=== PATIENT | female | born 1995 | race Caucasian/White ===

== ENCOUNTER 2018-05-20 05:35 | Outpatient (CLI) | payer SELFPAY ==
[~2018-05-20] VITALS: Ht 170.2 cm; Wt 68.0 kg
== END 2018-05-20 15:31 ==
LOC: PREOP 05:35
PROVIDERS: ATTEND Specialist
DX: Z01.818 Encounter for other preprocedural examination (principal)

== ENCOUNTER 2018-05-25 08:33 | Day surgery (SDC) | payer BC ==
[~2018-05-25] VITALS: Ht 170.2 cm; Wt 68.0 kg
[2018-05-25] MEDS ORDERED: ATRACURIUM 50 MG/5 ML (TRACRIUM) IV ONE ×3 (08:34→09:15)
--- OUTSIDE RECORDS SUMMARY | 2018-05-25 08:41 | XMS REPORT ---
Author Author Lalo Ross [facility] Address [address] [place], [place] [id number] Care Team Providers Care Kiln Cleaner Name Role Phone Lalo Ross PCP Unavailable Allergies and Adverse Reactions Name Reaction Notes NO KNOWN DRUG ALLERGIES Plan of Treatment Not available. Medications Active Name Start Date Estimated Completion Date SIG Comments loratadine 10 mg oral tablet take 1 tablet (10 mg) by oral route twice daily Front Window Cashier in [facility] nystatin 100,000 unit/gram topical cream 10/18/2014 apply to the affected area(s) by topical route 2 times per day ibuprofen 800 mg oral tablet 10/18/2014 take 1 tablet (800 mg) by oral route 3 times per day with food [place]-Smoothe/FS Body Oil 0.01 % topical oil 03/20/2016 apply to the affected area(s) by topical route 3 times per day hydroxyzine HCl 25 mg oral tablet 03/20/2016 09/16/2016 take 1 tablet (25 mg ) by oral route in the am, and 2 tablets in the evening Singulair 10 mg oral tablet 03/20/2016 09/16/2016 take 1 tablet (10 mg) by oral route twice daily Name Start Date Expiration Date SIG Comments A/B Otic 5.4-1.4 % otic drops 07/18/2010 07/21/2010 instill into right ear by otic route every 2 hours as needed enough drops to fill ear canal for 3 days prednisone 20 mg oral tablet 07/18/2010 07/21/2010 take 3 tablet (20 mg) by oral route daily for 3 days Tri-Sprintec (28) 0.18/0.215/0.25 mg-35 mcg (28) oral tablet 12/26/20142015 take 1 tablet by oral route once daily for 28 days Discontinued Name Start Date Discontinued Date SIG Comments Singulair 10 mg oral tablet 02/20/2010 07/30/2011 take 1 tablet (10 mg) by oral route once daily for 30 days dose changed prednisone 20 mg oral tablet 07/30/2011 09/20/2011 take 1 tablet (20 mg) by oral route once daily for 4 days then 0.5 tablet daily for 4 days Elidel 1 % topical cream 11/16/2012 02/10/2013 apply a thin layer to the affected area(s) by topical route 2 times per day ; rub in gently and completely Medrol (Tonio) 4 mg oral tablets,dose pack 08/30/2014 10/18/2014 take as directed Problem List Description Status Onset Eczema Active Vital Signs Date Time BP-Sys(mm[Hg] BP-Suad(mm[Hg]) HR(bpm) RR(rpm) Temp WT HT HC BMI BSA BMI Percentile O2 Sat(%) 03/20/2016 8:14:00 AM 120 mmHg 66 mmHg 56 bpm 18 rpm 97 F 140 lbs 65.5 in 22.94 kg/m2 1.71 m2 100 % 10/18/2014 9:30:00 AM 116 mmHg 70 mmHg 54 bpm 16 rpm 98 F 133 lbs 65.5 in 21.7955 kg/m 1.6697 m 51.3 % 100 % 03/31/2014 3:09:00 PM 118 mmHg 62 mmHg 61 bpm 16 rpm 98.1 F 139 lbs 65.5 in 22.78 kg/m2 1.71 m2 63.2 % 100 % 02/08/2013 8:48:00 AM 118 mmHg 60 mmHg 60 bpm 16 rpm 98.3 F 137 lbs 65 in 22.7978 kg/m 1.6882 m 66.6 % 09/20/2011 2:22:00 PM 112 mmHg 62 mmHg 72 bpm 18 rpm 98.2 F 132.5 lbs 65 in 22.05 kg/m2 1.66 m2 64.9 % 07/30/2011 2:26:00 PM 116 mmHg 60 mmHg 60 bpm 18 rpm 99.1 F 132 lbs 07/18/2010 2:16:00 PM 108 mmHg 78 mmHg 72 bpm 20 rpm 97.2 F 129.1 lbs 02/20/2010 10:14:00 AM 110 mmHg 72 mmHg 84 bpm 20 rpm 99.5 F 125 lbs 65 in 20.8009 kg/m 1.6125 m 60.2 % Social History Name Description Comments Student (High school ) Tobacco Never smoker History of Procedures Date Ordered Description Order Status 07/30/2011 12:00 AM MRI LWR EXTREMITY W/O&W/DYE Reviewed 02/23/2016 12:00 AM IMMUNOTHERAPY ONE INJECTION Reviewed 02/29/2016 12:00 AM IMMUNOTHERAPY ONE INJECTION Reviewed 03/07/2016 12:00 AM IMMUNOTHERAPY ONE INJECTION Reviewed 03/15/2016 12:00 AM IMMUNOTHERAPY ONE INJECTION Reviewed 03/20/2016 12:00 AM IMMUNOTHERAPY ONE INJECTION Reviewed 03/27/2016 12:00 AM IMMUNOTHERAPY ONE INJECTION Reviewed 04/11/2016 12:00 AM IMMUNOTHERAPY ONE INJECTION Reviewed 02/08/2013 12:00 AM Decadron 8 mg [facility]# [address]-55 Reviewed 02/08/2013 12:00 AM Depo-Medrol 80 mg [facility]#[id number] Reviewed Results Summary Not available. History Of Immunizations Not available. History of Past Illness Name Date of Onset Comments Eczema Otalgia Mar 06 2010 9:42AM Otitis Media, Nonsuppurative, Serous Mar 06 2010 9:42AM Allergic rhinitis; due to pollen Mar 06 2010 9:42AM Allergic Rhinitis Due To Pollen Jul 18 2010 2:20PM Contusion, left knee Jul 30 2011 2:24PM Sprain: Left knee Sep 20 2011 2:19PM Eczema Feb 08 2013 8:50AM Sports Physical Mar 31 2014 3:11PM Candidiasis Of Skin, Left Axilla Oct 18 2014 9:33AM Knee sprain, left, initial encounter Oct 18 2014 9:33AM Allergic rhinitis; due to pollen Feb 23 2016 7:41AM Allergic rhinitis; due to other allergen Feb 23 2016 7:41AM Allergic rhinitis; due to pollen Feb 29 2016 3:03PM Allergic rhinitis; due to other allergen Feb 29 2016 3:03PM Allergic rhinitis; due to pollen Mar 07 2016 1:59PM Allergic rhinitis; due to other allergen Mar 07 2016 1:59PM Allergic rhinitis; due to pollen Mar 15 2016 11:39AM Allergic rhinitis; due to other allergen Mar 15 2016 11:39AM Allergic rhinitis; due to pollen Mar 20 2016 8:58AM Allergic rhinitis; due to other allergen Mar 20 2016 8:58AM Eczema, unspecified type Mar 20 2016 8:16AM Allergic rhinitis; due to pollen Mar 27 2016 10:39AM Allergic rhinitis; due to other allergen Mar 27 2016 10:39AM Allergic rhinitis; due to pollen Apr 11 2016 12:48PM Allergic rhinitis; due to other allergen Apr 11 2016 12:48PM Payers Insurance Name Company Name Plan Name Plan Number Policy Number Policy Group Number Start Date [facility] [id number] January Queenie Jerome [id number] Saturday, 2011 [id number] N/A History of Encounters Visit Date Visit Type Provider 04/11/2016 Nurse visit Lalo Ross DO 04/05/2016 Nurse visit Lalo Ross DO 03/27/2016 Nurse visit Lalo Ross DO 03/20/2016 Office visit Lalo Ross DO 03/15/2016 Nurse visit Lalo Apontete DO 03/07/2016 Nurse visit Lalo Ross DO 02/29/2016 Nurse visit Lalo Ross DO 02/22/2016 Nurse visit Lalo Ross DO 10/18/2014 Office visit Lalo Ross DO 03/31/2014 Office visit Lalo Ross DO 02/08/2013 Office visit Lalo Ross DO 07/30/2011 Office visit Lalo Ross DO 07/18/2010 Office visit Harini Yeh MD 02/20/2010 Office visit Harini Yeh MD
--- OUTSIDE RECORDS SUMMARY | 2018-05-25 08:41 | XMS REPORT ---
Author Author Ishan Urena [facility] Address [address] [place], [place] [id number] Care Team Providers Care Policy Writer Name Role Phone Ishan Urena PCP Unavailable Allergies and Adverse Reactions Name Reaction Notes NO KNOWN DRUG ALLERGIES Plan of Treatment Not available. Medications Active Name Start Date Estimated Completion Date SIG Comments loratadine 10 mg oral tablet take 1 tablet (10 mg) by oral route twice daily Brooch And Bracelet Maker in [facility] nystatin 100,000 unit/gram topical cream 10/18/2014 apply to the affected area(s) by topical route 2 times per day ibuprofen 800 mg oral tablet 10/18/2014 take 1 tablet (800 mg) by oral route 3 times per day with food [place]-Smoothe/FS Body Oil 0.01 % topical oil 03/20/2016 [...] 04/11/2016 12:00 AM IMMUNOTHERAPY ONE INJECTION Reviewed 05/01/2016 12:00 AM IMMUNOTHERAPY ONE INJECTION Reviewed 02/08/2013 12:00 AM Decadron 8 mg [facility]# [address]-19 Reviewed 02/08/2013 12:00 AM Depo-Medrol 80 mg [facility]#[address]-29 Reviewed Results Summary Not available. History Of [...] to other allergen Apr 11 2016 12:48PM Allergic rhinitis; due to pollen May 01 2016 3:19PM Allergic rhinitis; due to other allergen May 01 2016 3:19PM Payers Insurance Name Company Name Plan Name Plan Number Policy Number Policy Group Number Start Date [facility] [id number] January Queenie Jerome [id number] Saturday, 2011 [facility] [id number] N/A History of Encounters Visit Date Visit Type Provider 04/18/2016 Nurse visit Ishan Urena MD 04/11/2016 Nurse visit Lalo Ross DO 04/05/2016 Nurse visit Lalo Ross DO 03/27/2016 Nurse visit Lalo Ross DO 03/20/2016 Office visit Lalo Ross DO 03/15/2016 Nurse visit Lalo Ross DO 03/07/2016 Nurse visit Lalo Ross DO 02/29/2016 Nurse visit Lalo Ross DO 02/22/2016 Nurse visit Lalo Ross DO 10/18/2014 Office visit Lalo Vandana DO 03/31/2014 Office visit Lalo Ross DO 02/08/2013 Office visit Lalo Ross DO 07/30/2011 Office visit Lalo Ross DO 07/18/2010 Office visit Harini Yeh MD 02/20/2010 Office visit Harini Yeh MD
--- OUTSIDE RECORDS SUMMARY | 2018-05-25 08:41 | XMS REPORT ---
Author Author Lalo Ross [facility] Address [address] [place], [place] [id number] Care Team Providers Care Computer Support Specialist Name Role Phone Lalo Ross PCP Unavailable Allergies and Adverse Reactions Name Reaction Notes NO KNOWN DRUG ALLERGIES Plan of Treatment Not available. Medications Active Name Start Date Estimated Completion Date SIG Comments loratadine 10 mg oral tablet take 1 tablet (10 mg) by oral route twice daily Strap Folding Machine Operator in [facility] [place]-Smoothe/FS Body Oil 0.01 % topical oil 07/12/2014 apply to the affected area(s) by topical route 3 times per day nystatin 100,000 unit/gram topical cream 10/18/2014 apply to the affected area(s) by topical route 2 times per day ibuprofen 800 mg oral tablet 10/18/2014 take 1 tablet (800 mg) by oral route 3 times per day with food Name Start Date Expiration Date SIG Comments A/B Otic 5.4-1.4 % otic drops 07/18/2010 07/21/2010 instill into right ear by otic route every 2 hours as needed enough drops to fill ear canal for 3 days prednisone 20 mg oral tablet 07/18/2010 07/21/2010 take 3 tablet (20 mg) by oral route daily for 3 days Singulair 10 mg oral tablet 12/17/2013 06/15/2014 take 1 tablet (10 mg) by oral route twice daily hydroxyzine HCl 25 mg oral tablet 08/30/2014 02/26/2015 take 1 tablet (25 mg ) by oral route in the am, and 2 tablets in the evening Tri-Sprintec (28) 0.18/0.215/0.25 mg-35 mcg (28) oral [...] HC BMI BSA BMI Percentile O2 Sat(%) 10/18/2014 9:30:00 AM 116 mmHg 70 mmHg 54 bpm 16 rpm 98 F 133 lbs 65.5 in 21.80 kg/m2 1.67 m2 51.3 % 100 % 03/31/2014 3:09:00 PM 118 mmHg 62 mmHg 61 bpm 16 rpm 98.1 F 139 lbs 65.5 in 22.7788 kg/m 1.707 m 63.2 % 100 % 02/08/2013 8:48:00 AM 118 mmHg 60 mmHg 60 bpm 16 rpm 98.3 F 137 lbs 65 in 22.80 kg/m2 1.69 m2 66.6 % 09/20/2011 2:22:00 PM 112 mmHg 62 mmHg 72 bpm 18 rpm 98.2 F 132.5 lbs 65 in 22.0489 kg/m 1.6602 m 64.9 % 07/30/2011 2:26:00 PM 116 mmHg 60 mmHg 60 bpm 18 rpm 99.1 F 132 lbs 07/18/2010 2:16:00 PM 108 mmHg 78 mmHg 72 bpm 20 rpm 97.2 F 129.1 lbs 02/20/2010 10:14:00 AM 110 mmHg 72 mmHg 84 bpm 20 rpm 99.5 F 125 lbs 65 in 20.80 kg/m2 1.61 m2 60.2 % Social History Name Description Comments Student (High school ) Tobacco Never smoker History of Procedures Date Ordered Description Order Status 07/30/2011 12:00 AM MRI LWR EXTREMITY W/O&W/DYE Reviewed 02/23/2016 12:00 AM IMMUNOTHERAPY ONE INJECTION Reviewed 02/29/2016 12:00 AM IMMUNOTHERAPY ONE INJECTION Reviewed 03/07/2016 12:00 AM IMMUNOTHERAPY ONE INJECTION Reviewed 03/15/2016 12:00 AM IMMUNOTHERAPY ONE INJECTION Reviewed 02/08/2013 12:00 AM Decadron 8 mg [facility]# [address]-34 Reviewed 02/08/2013 12:00 AM Depo-Medrol 80 mg [facility]#[address]-93 Reviewed Results Summary Not available. History Of [...] to other allergen Mar 15 2016 11:39AM Payers Insurance Name Company Name Plan Name Plan Number Policy Number Policy Group Number Start Date [facility] [id number] January Gemukesh Jerome [id number] Saturday, 2011 [facility] [id number] N/A History of Encounters Visit Date Visit Type Provider 03/15/2016 Nurse visit Lalo Ross DO 03/07/2016 [...]
--- OUTSIDE RECORDS SUMMARY | 2018-05-25 08:42 | XMS REPORT ---
Author Author Lalo Ross [facility] Address [address] [place], [place] [id number] Care Team Providers Care Operations Representative Name Role Phone Lalo Ross PCP Unavailable Allergies and Adverse Reactions Name Reaction Notes NO KNOWN DRUG ALLERGIES Plan of Treatment Not available. Medications Active Name Start Date Estimated Completion Date SIG Comments loratadine 10 mg oral tablet take 1 tablet (10 mg) by oral route twice daily Greige Goods Marker in [facility] nystatin 100,000 unit/gram topical cream 10/18/2014 apply to the affected area(s) by topical route 2 times per day ibuprofen 800 mg oral tablet 10/18/2014 take 1 tablet (800 mg) by oral route 3 times per day with food [place]-Smoothe/FS Body Oil 0.01 % topical oil 03/20/2016 [...] 03/27/2016 12:00 AM IMMUNOTHERAPY ONE INJECTION Reviewed 02/08/2013 12:00 AM Decadron 8 mg [facility]# [address]-98 Reviewed 02/08/2013 12:00 AM Depo-Medrol 80 mg [facility]#[address]-65 Reviewed Results Summary Not available. History Of [...] to other allergen Mar 27 2016 10:39AM Payers Insurance Name Company Name Plan Name Plan Number Policy Number Policy Group Number Start Date [facility] [id number] January Queenie Jerome [id number] Saturday, 2011 [facility] [id number] N/A History of Encounters Visit Date Visit Type Provider 03/27/2016 Nurse visit Lalo Ross DO 03/20/2016 [...]
--- OUTSIDE RECORDS SUMMARY | 2018-05-25 08:42 | XMS REPORT ---
Author Author Lalo Ross [facility] Address [address] [place], [place] [id number] Care Team Providers Care Lock Stitch Channeler Name Role Phone Lalo Ross PCP Unavailable Allergies and Adverse Reactions Name Reaction Notes NO KNOWN DRUG ALLERGIES Plan of Treatment Not available. Medications Active Name Start Date Estimated Completion Date SIG Comments loratadine 10 mg oral tablet take 1 tablet (10 mg) by oral route twice daily Fuel Cell Builder in [facility] nystatin 100,000 unit/gram topical cream 10/18/2014 apply to the affected area(s) by topical route 2 times per day ibuprofen 800 mg oral tablet 10/18/2014 take 1 tablet (800 mg) by oral route 3 times per day with food [place]-Smoothe/FS Body Oil 0.01 % topical oil 03/20/2016 apply to the affected area(s) by topical route 3 times per day hydroxyzine HCl 25 mg oral tablet 05/09/2016 11/05/2016 take 1 tablet (25 mg) by oral route in the am, and 2 tablets in the evening Singulair 10 mg oral tablet 05/09/2016 11/05/2016 take 1 tablet (10 mg) by oral [...] HC BMI BSA BMI Percentile O2 Sat(%) 05/16/2016 9:14:00 AM 124 mmHg 78 mmHg 93 bpm 18 rpm 98.1 F 152 lbs 65.5 in 24.91 kg/m2 1.79 m2 99 % 03/20/2016 8:14:00 AM 120 mmHg 66 mmHg 56 bpm 18 rpm 97 F 140 lbs 65.5 in 22.9427 kg/m 1.7131 m 100 % 10/18/2014 9:30:00 AM 116 mmHg [...] 05/01/2016 12:00 AM IMMUNOTHERAPY ONE INJECTION Reviewed 05/09/2016 12:00 AM IMMUNOTHERAPY ONE INJECTION Reviewed 05/16/2016 12:00 AM IMMUNOTHERAPY ONE INJECTION Reviewed 02/08/2013 12:00 AM Decadron 8 mg [facility]# [address]-10 Reviewed 02/08/2013 12:00 AM Depo-Medrol 80 mg [facility]#[address]-26 Reviewed Results Summary Not available. History Of [...] to other allergen May 01 2016 3:19PM Allergic rhinitis; due to pollen May 09 2016 10:23AM Allergic rhinitis; due to other allergen May 09 2016 10:23AM Allergic rhinitis; due to pollen May 16 2016 9:32AM Allergic rhinitis; due to other allergen May 16 2016 9:32AM Payers Insurance Name Company Name Plan Name Plan Number Policy Number Policy Group Number Start Date [facility] [id number] January [facility] [id number] Saturday, 2011 [facility] [id number] N/A History of Encounters Visit Date Visit Type Provider 05/16/2016 Nurse visit Lalo Ross DO 05/09/2016 Nurse visit Beronica Mora APRN 04/18/2016 Nurse visit Ishan Urena MD 04/11/2016 Nurse visit Lalo Ross DO 04/05/2016 Nurse visit Lalo Vandana DO 03/27/2016 Nurse visit Lalo Vandana DO 03/20/2016 Office visit Lalo Vandaan DO 03/15/2016 Nurse visit Lalo Vandana DO 03/07/2016 Nurse visit Lalo Vandana DO 02/29/2016 Nurse visit Lalo Vandana DO 02/22/2016 Nurse visit Lalo Vandana DO 10/18/2014 Office visit Lalo Vandana DO 03/31/2014 Office visit Lalo Vandana DO 02/08/2013 Office visit Lalo Vandana DO 07/30/2011 Office visit Lalo Ross DO 07/18/2010 Office visit Harini Yeh MD 02/20/2010 Office visit Harini Yeh MD
--- OUTSIDE RECORDS SUMMARY | 2018-05-25 08:42 | XMS REPORT ---
Author Author Lalo Ross [facility] Address [address] [place], [place] [id number] Care Team Providers Care Policy Intern Name Role Phone Lalo Ross PCP Unavailable Allergies and Adverse Reactions Name Reaction Notes NO KNOWN DRUG ALLERGIES Plan of Treatment Not available. Medications Active Name Start Date Estimated Completion Date SIG Comments loratadine 10 mg oral tablet take 1 tablet (10 mg) by oral route twice daily Regulatory Coordinator in [facility] [place]-Smoothe/FS Body Oil 0.01 % topical oil 07/12/2014 [...] 02/23/2016 12:00 AM IMMUNOTHERAPY ONE INJECTION Reviewed 02/08/2013 12:00 AM Decadron 8 mg [facility]# [address]-67 Reviewed 02/08/2013 12:00 AM Depo-Medrol 80 mg [facility]#[address]-62 Reviewed Results Summary Not available. History Of [...] to other allergen Feb 23 2016 7:41AM Payers Insurance Name Company Name Plan Name Plan Number Policy Number Policy Group Number Start Date [facility] [id number] January [facility] [id number] Saturday, 2011 [facility] [id number] N/A History of Encounters Visit Date Visit Type Provider 02/22/2016 Nurse visit Lalo Ross DO 10/18/2014 Office visit Lalo Ross DO 03/31/2014 Office visit Lalo Ross DO 02/08/2013 Office visit Lalo Ross DO 07/30/2011 Office visit Lalo Ross DO 07/18/2010 Office visit Harini Yeh MD 02/20/2010 Office visit Harini Yeh MD
--- OUTSIDE RECORDS SUMMARY | 2018-05-25 08:42 | XMS REPORT ---
Author Author Lalo Ross [facility] Address [address] [place], [place] [address] Care Team Providers Care Parking Enforcement Manager Name Role Phone Lalo Ross PCP Unavailable Allergies and Adverse Reactions Name Reaction Notes NO KNOWN DRUG ALLERGIES Plan of Treatment Not available. Medications Active Name Start Date Estimated Completion Date SIG Comments loratadine 10 mg oral tablet take 1 tablet (10 mg) by oral route twice daily Rail Filler in [facility] [place]-Smoothe/FS Body Oil 0.01 % topical oil 07/12/2014 [...] 03/07/2016 12:00 AM IMMUNOTHERAPY ONE INJECTION Reviewed 02/08/2013 12:00 AM Decadron 8 mg [facility]# [address]-76 Reviewed 02/08/2013 12:00 AM Depo-Medrol 80 mg [facility]#[address]-10 Reviewed Results Summary Not available. History Of [...] to other allergen Mar 07 2016 1:59PM Payers Insurance Name Company Name Plan Name Plan Number Policy Number Policy Group Number Start Date [facility] [id number] January Queenie Jerome [id number] Saturday, 2011 [facility] [id number] N/A History of Encounters Visit Date Visit Type Provider 03/07/2016 Nurse visit Lalo Ross DO 02/29/2016 Nurse visit Lalo Ross DO 02/22/2016 Nurse visit Lalo Ross DO 10/18/2014 Office visit Lalo Ross DO 03/31/2014 Office visit Lalo Ross DO 02/08/2013 Office visit Lalo Ross DO 07/30/2011 Office visit Lalo Ross DO 07/18/2010 Office visit Harini Yeh MD 02/20/2010 Office visit Harini Yeh MD
--- OUTSIDE RECORDS SUMMARY | 2018-05-25 08:43 | XMS REPORT ---
Author Author Lalo Ross [facility] Address [address] [place], [place] [id number] Care Team Providers Care Heating Worker Name Role Phone Lalo Ross PCP Unavailable Allergies and Adverse Reactions Name Reaction Notes NO KNOWN DRUG ALLERGIES Plan of Treatment Not available. Medications Active Name Start Date Estimated Completion Date SIG Comments loratadine 10 mg oral tablet take 1 tablet (10 mg) by oral route twice daily Family Services Assistant in [facility] [place]-Smoothe/FS Body Oil 0.01 % topical oil 07/12/2014 [...] 02/29/2016 12:00 AM IMMUNOTHERAPY ONE INJECTION Reviewed 02/08/2013 12:00 AM Decadron 8 mg [facility]# [address]-10 Reviewed 02/08/2013 12:00 AM Depo-Medrol 80 mg [facility]#[address]-57 Reviewed Results Summary Not available. History Of [...] to other allergen Feb 29 2016 3:03PM Payers Insurance Name Company Name Plan Name Plan Number Policy Number Policy Group Number Start Date [facility] [id number] January [facility] [id number] Saturday, 2011 [facility] [id number] N/A History of Encounters Visit Date Visit Type Provider 02/29/2016 Nurse visit Lalo Ross DO 02/22/2016 Nurse visit Lalo Ross DO 10/18/2014 Office visit Lalo Ross DO 03/31/2014 Office visit Lalo Ross DO 02/08/2013 Office visit Lalo Ross DO 07/30/2011 Office visit Laol Ross DO 07/18/2010 Office visit Harini Yeh MD 02/20/2010 Office visit Harini Yeh MD
--- OUTSIDE RECORDS SUMMARY | 2018-05-25 08:43 | XMS REPORT ---
Author Author Lalo Ross [facility] Address [address] [place], [place] [address] Care Team Providers Care Superintendent Communications Name Role Phone Lalo Ross PCP Unavailable Allergies and Adverse Reactions Name Reaction Notes NO KNOWN DRUG ALLERGIES Plan of Treatment Not available. Medications Active Name Start Date Estimated Completion Date SIG Comments loratadine 10 mg oral tablet take 1 tablet (10 mg) by oral route twice daily Prism Inspector in [facility] nystatin 100,000 unit/gram topical cream 10/18/2014 apply to the affected area(s) by topical route 2 times per day ibuprofen 800 mg oral tablet 10/18/2014 take 1 tablet (800 mg) by oral route 3 times per day with food [place]-Smoothe/FS Body Oil 0.01 % topical oil 03/20/2016 [...] 03/20/2016 12:00 AM IMMUNOTHERAPY ONE INJECTION Reviewed 02/08/2013 12:00 AM Decadron 8 mg [facility]# [address]-48 Reviewed 02/08/2013 12:00 AM Depo-Medrol 80 mg [facility]#[address]-31 Reviewed Results Summary Not available. History Of [...] Eczema, unspecified type Mar 20 2016 8:16AM Payers Insurance Name Company Name Plan Name Plan Number Policy Number Policy Group Number Start Date [facility] [id number] January Queenie Jerome [id number] Saturday, 2011 [facility] [id number] N/A History of Encounters Visit Date Visit Type Provider 03/20/2016 Office visit Lalo Ross DO 03/15/2016 Nurse visit Lalo Ross DO 03/07/2016 Nurse visit Lalo Ross DO 02/29/2016 Nurse visit Lalo Ross DO 02/22/2016 Nurse visit Lalo Ross DO 10/18/2014 Office visit Lalo Ross DO 03/31/2014 Office visit Lalo Ross DO 02/08/2013 Office visit Laol Ross DO 07/30/2011 Office visit Lalo Ross DO 07/18/2010 Office visit Harini Yeh MD 02/20/2010 Office visit Harini Yeh MD
--- OUTSIDE RECORDS SUMMARY | 2018-05-25 08:44 | XMS REPORT ---
Author Author Beronica Mora [facility] Address [address] [place], [place] [id number] Care Team Providers Care Blow Mold Machine Operator Name Role Phone Beronica Mora PCP Unavailable Allergies and Adverse Reactions Name Reaction Notes NO KNOWN DRUG ALLERGIES Plan of Treatment Not available. Medications Active Name Start Date Estimated Completion Date SIG Comments loratadine 10 mg oral tablet take 1 tablet (10 mg) by oral route twice daily Adult Services Librarian in [facility] nystatin 100,000 unit/gram topical cream 10/18/2014 apply to the affected area(s) by topical route 2 times per day ibuprofen 800 mg oral tablet 10/18/2014 take 1 tablet (800 mg) by oral route 3 times per day with food [place]-Smoothe/FS Body Oil 0.01 % topical oil 03/20/2016 [...] 05/09/2016 12:00 AM IMMUNOTHERAPY ONE INJECTION Reviewed 02/08/2013 12:00 AM Decadron 8 mg [facility]# [address]-96 Reviewed 02/08/2013 12:00 AM Depo-Medrol 80 mg [facility]#[address]-41 Reviewed Results Summary Not available. History Of [...] to other allergen May 09 2016 10:23AM Payers Insurance Name Company Name Plan Name Plan Number Policy Number Policy Group Number Start Date [employer] [id number] January [employer] [id number] Saturday, [id number] N/A History of Encounters Visit Date Visit Type Provider 05/09/2016 Nurse visit Beronica Mora LABOR GANG SUPERVISOR 04/18/2016 Nurse visit Ishan Urena MD 04/11/2016 [...]
--- OUTSIDE RECORDS SUMMARY | 2018-05-25 08:45 | XMS REPORT ---
Author Author Lalo Ross [facility] Address [address] [place], [place] [id number] Care Team Providers Care Real Estate Valuer Name Role Phone Lalo Ross PCP Unavailable Allergies and Adverse Reactions Name Reaction Notes NO KNOWN DRUG ALLERGIES Plan of Treatment Not available. Medications Active Name Start Date Estimated Completion Date SIG Comments loratadine 10 mg oral tablet take 1 tablet (10 mg) by oral route twice daily Admissions Recruiter in [facility] nystatin 100,000 unit/gram topical cream 10/18/2014 apply to the affected area(s) by topical route 2 times per day ibuprofen 800 mg oral tablet 10/18/2014 take 1 tablet (800 mg) by oral route 3 times per day with food [place]-Smoothe/FS Body Oil 0.01 % topical oil 03/20/2016 [...] Reviewed 02/08/2013 12:00 AM Decadron 8 mg [facility]# [address]-98 Reviewed 02/08/2013 12:00 AM Depo-Medrol 80 mg [facility]#[address]-54 Reviewed Results Summary Not available. History Of [...] to other allergen Mar 20 2016 8:58AM Payers Insurance Name Company Name Plan Name Plan Number Policy Number Policy Group Number Start Date [facility] [id number] January Queenie Jerome [id number] Saturday, 2011 [facility] [id number] N/A History of Encounters Visit Date Visit [...]
--- OUTSIDE RECORDS SUMMARY | 2018-05-25 08:46 | XMS REPORT | Continuity of Care Document ---
Author Author [facility] Organization [facility] Address Unknown Phone Unavailable Allergies Active Description Code Type Severity Reaction Onset Reported/Identified Relationship to Patient Clinical Status Yes NO NAME AVAILABLE 90617 DRUG N/ A N/A Yes No Known Allergies NKA Miscellaneous Allergy Unknown N/A 04/18/2018 Yes No Known Drug Allergies [id number] Drug Allergy Unknown N/A 05/20/2018 Medications There is no data. Problems Date Dx Coded Attending Type Code Diagnosis Diagnosed By 08/24/2014 HELENA ANNE V74.5 SCREEN FOR VENERAL DIS 04/18/2018 Marlo De La Cruz S60.511A ABRASION OF RIGHT HAND, INITIAL ENCOUNTE 04/18/2018 Marlo De La Cruz W55.03XA SCRATCHED BY CAT, INITIAL ENCOUNTER 04/18/2018 Marlo De La Cruz Y92.830 [facility] THE PLACE OF OCCURRENCE O 05/20/2018 ENDER MIRAMONTES DDS Ot Z01.818 ENCOUNTER FOR OTHER PREPROCEDURAL EXAMIN Procedures Code [place] [address] NILSA, DNA, DIR PROBE HELENA ANNE 08/24/2014 03901 BUNDY VAG, DNA, DIR PROBE HELENA ANNE 08/24/2014 41662 TRICHOMONAS VAGIN, DIR PROBE HELENA ANNE 08/24/2014 Results Test Result Range AFFIRM Vaginitis Panel - 08/24/14 14:30 [place] POS Negative Trichomonas NEG Negative Nilsa NEG Negative Encounters ACCT No. Visit Date/Time Discharge Status Pt. Type Provider Facility Loc./Unit Complaint [id number] 07/16/2016 16:52:18 07/16/2016 23:59:59 CLS Outpatient Ishan Urena [id number] 05/16/2016 10:09:24 05/16/2016 23:59:59 CLS Outpatient Lalo Ross [id number] 05/09/2016 10:47:19 05/09/2016 23:59:59 CLS Outpatient Beronica Mora [id number] 10/18/2014 10:24:15 10/18/2014 23:59:59 CLS Outpatient Lalo Ross [id number] 03/31/2014 16:01:38 03/31/2014 23:59:59 CLS Outpatient Lalo Ross [id number] 08/27/2014 17:06:00 08/27/2014 18:02:00 DIS Emergency [id number] 04/18/2018 13:59:00 04/18/2018 14:32:00 DIS Emergency Marlo De La Cruz [facility] COL.ER [id number] 05/20/2018 05:35:00 05/20/2018 15:31:00 DIS Outpatient ENDER MIRAMONTES DDS [facility] PREOP MAXILLARY HYPOPLASIA [id number] 08/25/2014 08:48:58 ACT Document Registration [id number] 08/25/2014 08:25:00 08/25/2014 08:25:00 DIS Outpatient HELENA ANNE [facility]
--- OUTSIDE RECORDS SUMMARY | 2018-05-25 08:46 | XMS REPORT ---
Author Author [facility]. Medical Staff Organization [facility] Address [address] [place] [address] Phone [phone] Summary purpose CCDA Sent to [facility] Chief Complaint and Reason for Visit Admit Diagnosis 1 SCREEN FOR VENERAL DIS Problem list No authorized problems tracked for continuity of care are available for this visit. Encounters No authorized problems tracked for encounter diagnoses are available for this visit. Medications No home medications recorded for this patient visit Allergies, adverse reactions, alerts No allergy information is available for this patient. Immunizations No immunizations recorded for this patient visit Relevant diagnostic tests and/or laboratory data No authorized results are available for this patient visit History of procedures Procedure Code Code Type Description Date Performed Performing Physician 99632 CPT-4 LEVAR, DNA, DIR PROBE 08-24-2014 HELENA ROBERTS 28530 CPT-4 BUNDY VAG, DNA, DIR PROBE 08-24-2014 HELENA ROBERTS 02457 CPT-4 TRICHOMONAS VAGIN, DIR PROBE 08-24-2014 HELENA ROBERTS Functional status No functional or cognitive status observations are available for this visit. Vital signs No authorized vital signs are available for this visit. Social history No Social History or smoking status observations were recorded for this visit. ( Unknown if ever smoked.) Treatment Plan No treatment plan text is available for this visit. Hospital discharge instructions No discharge instruction text is available for this visit.
[2018-05-25 09:10] VITALS: BP 115/78
[2018-05-25] MEDS ORDERED: HURRICAINE EXT TUBE (BENZOCAINE) ONE (09:14)
[2018-05-25] MEDS ORDERED: LACTATED RINGERS 1,000 ML IV ONE (09:14)
[2018-05-25] MEDS ORDERED: proPOfol 200 MG/20 ML (DIPRIVAN) VIAL IV ONE (09:14)
[2018-05-25] MEDS ORDERED: DEXAMETHASONE 10 MG/ML (DECADRON) 1 ML VIAL ONE (09:14)
[2018-05-25] MEDS ORDERED: SEVOFLURANE (ULTANE) 15 ML INHAL SOLN ONE ×12 (09:14→13:13)
[2018-05-25] MEDS ORDERED: LIDOCAINE PF 2% 5 ML (XYLOCAINE) VIAL ONE (09:14)
[2018-05-25] MEDS ORDERED: PHENYLEPHRINE 0.25% NASAL SPR (NEO-SYNEPHRINE) 15 ML NS ONE ×2 (09:15→09:25)
[2018-05-25] MEDS ORDERED: MIDAZOLAM 2 MG/2 ML (VERSED) VIAL ONE (09:15)
[2018-05-25] MEDS ORDERED: ceFAZolin 2 GM/50 ML PRE-MIX IVPB IV ONE (09:15)
[2018-05-25] MEDS ORDERED: GLYCOPYRROLATE 0.2 MG/ML (ROBINUL) 2 ML VIAL IV ONE (09:15)
[2018-05-25] MEDS ORDERED: fentaNYL INJECTION 100 MCG/2 ML AMP ONE ×2 (09:15→11:13)
[2018-05-25] MEDS ORDERED: LACTATED RINGERS 1,000 ML IV PRN (09:17)
[2018-05-25] MEDS ORDERED: LIDOCAINE JELLY 2% (XYLOCAINE) 5 ML TUBE ONE (09:18)
[2018-05-25] MEDS ORDERED: LIDOCAINE 4% INJ (XYLOCAINE) 5ML AMP ONE (09:22)
[2018-05-25] MEDS: LACTATED RINGERS 1,000 ML IV PRN ×3 (09:25→18:52)
[2018-05-25] MEDS ORDERED: GLYCOPYRROLATE 0.2 MG/ML (ROBINUL) 2 ML VIAL ONE (09:25)
[2018-05-25] MEDS ORDERED: ceFAZolin 2 GM IV Premixed 50 ML IV ONE (09:30)
--- NOTE | 2018-05-25 09:38 | Progress Note-Pre Operative ---
Pre-Operative Progress Note H&P Reviewed The H&P was reviewed, patient examined and no changes noted. Date Seen by Provider: May 25, 2018 Time Seen by Provider: : Date H&P Reviewed: May 25, 2018 Time H&P Reviewed: : Pre-Operative Diagnosis: vertical maxillary excess with contriction ENDER MIRAMONTES DDS May 25, 2018 9:38 am
[2018-05-25] MEDS ORDERED: LIDOCAINE/EPI 2% 1:100,00 (XYLOCAINE) 20 ML VIAL ONE (09:51)
[2018-05-25] MEDS ORDERED: ROPIVACAINE 5MG/ML 30ML VIAL ONE (10:02)
[2018-05-25] MEDS ORDERED: ESMOLOL 100 MG/10 ML (BREVIBLOC) VIAL ONE (11:14)
[2018-05-25] MEDS ORDERED: SUFentanil CITRATE INJ 50MCG/ML 1ML AMP IV ONE (11:35)
[2018-05-25] MEDS ORDERED: ONDANSETRON 4 MG/2 ML (SDV) Z0FRAN IVP PRN (14:00)
[2018-05-25] MEDS ORDERED: MEPERIDINE (DEMEROL) INJ 50 MG/ML IVP PRN (14:00)
[2018-05-25] MEDS: morphine INJ 10 MG/ML 1ML (SYR OR VIAL) IVP PRN ×2 (14:16→14:20)
--- NOTE | 2018-05-25 14:39 | Anesthesia-General Post-Op ---
General Patient Condition Mental Status/LOC: Same as Preop Cardiovascular: Satisfactory Nausea/Vomiting: Absent Respiratory: Satisfactory Pain: Controlled Complications: Absent Post Op Complications Complications None Follow Up Care/Instructions Patient Instructions None needed. Anesthesia/Patient Condition Patient Condition Patient is doing well, no complaints, stable vital signs, no apparent adverse anesthesia problems. No complications reported per nursing. JAYLAN PENDLETON CRNA May 25, 2018 14:39
[2018-05-25] MEDS: DEXAMETHASONE 4 MG/ML SDV (DECADRON) IV SCH ×2 (15:30→20:12)
[2018-05-25] MEDS: ONDANSETRON 4 MG/2 ML (SDV) Z0FRAN IVP PRN ×2 (15:54→20:11)
[2018-05-25 16:25] VITALS: BP 115/72
[2018-05-25] MEDS: ceFAZolin INJECTION 1,000 MG in NS (IVPB) 50 ML IV SCH (18:52)
[2018-05-25] MEDS: HYDROmorphone 1 MG/ML (DILAUDID) 1 ML SYRINGE IV PRN ×2 (18:52→23:34)
[2018-05-26 00:01] VITALS: BP 110/60
[2018-05-26] MEDS: ceFAZolin INJECTION 1,000 MG in NS (IVPB) 50 ML IV SCH ×2 (02:15→09:35)
[2018-05-26] MEDS: DEXAMETHASONE 4 MG/ML SDV (DECADRON) IV SCH ×3 (03:02→15:06)
[2018-05-26 04:01] VITALS: BP 105/45
[2018-05-26] MEDS: HYDROmorphone 1 MG/ML (DILAUDID) 1 ML SYRINGE IV PRN ×2 (04:03→08:20)
[2018-05-26 08:30] VITALS: BP 93/52
[2018-05-26] MEDS: HYDROcodone/APAP 7.5MG-325 MG/15 ML (LORTAB) UDC PO PRN ×2 (11:06→15:06)
[2018-05-26 12:30] VITALS: BP 95/45
[2018-05-26 16:27] VITALS: BP 98/53
[2018-05-26 17:19] VITALS: BP 98/53
--- NOTE | 2018-06-10 20:59 | OPERATIVE REPORT ---
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 SURGEON: Dr. Ender Miramontes. EMERGENCY CARE ATTENDANT: Sharon ANESTHESIA: General endotracheal. BLOOD LOSS: 300 mL. URINE OUTPUT: 200 mL. FLUIDS ADMINISTERED: 1600 mL of crystalloid. PREOPERATIVE DIAGNOSIS: Maxillary vertical excess. POSTOPERATIVE DIAGNOSIS: Maxillary vertical excess. PROCEDURE: [place] 1 osteotomy 2 piece with vertical impaction. HISTORY OF PRESENT ILLNESS AND INDICATIONS FOR PROCEDURE: The patient is an otherwise healthy 23-year-old white male who presents approximately 2 years ago upon referral from material man, Dr. 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 She was then scheduled for a [place] 1 osteotomy impaction. Again, we eventually followed her for in excess of 2 years. At this time, we had also given her alternative treatment plans as well as answered any questions she has. Then, after this, she was then scheduled for surgery at the earliest opportune time and she elected to have a [place] 1 osteotomy. DESCRIPTION OF PROCEDURE: The patient was taken to the operating room and placed on the operating table. The appropriate monitors were placed. Anesthesia was induced via nasotracheal intubation without difficulty. Once this was secured, the surgeon left the room, scrubbed, returned, donned, sterile gowns and gloves and prepped and draped the patient in the usual standard sterile fashion. After depositing local anesthesia in the anterior maxillary infiltration, we then used a Bovie electrocautery to make incision from the first molar to first molar bilaterally. Then, dissected subperiosteally with a subperiosteal elevator exposing the maxillary buttress bilaterally and the anterior nasal spine as well as identifying the foramen for the second division of the trigeminal nerve. After this, we then used a caliper to suma approximately 25 mm above the first cuspid of the molar and 35 above the cusp tip of the maxillary canine bilaterally. Then used a caliper to make our internal reference britt bilaterally. After this, we used a reciprocating saw to make a horizontal osteotomy bilaterally to the buttress as well as the medial wall of the sinus. Then used an osteotome to further excise the medial wall of the maxillary sinus bilaterally. We then used a nasal septal osteotome to remove the cartilaginous septum and bony components of the nasal septum. After this, we were able to successfully down fracture the maxilla after using an osteotome to the tuberosity region. We then mobilized the maxilla. I then used a round verena to just off center of the maxillary crest to go ahead and divide the maxilla into 2 pieces. After this, we wired it into the splint, which had been fabricated presurgery. After this, we checked our reference britt and removed approximately 6.5 mm on the posterior aspect of the maxilla and approximately 6.5 in the anterior portion as well. Then, we placed 4 plates, 2 in the buttress and 2 in the piriform rim region with 2 screws in the proximal and 2 in the distal segments. After this, we copiously irrigated with normal saline, performed a V-Y closure in the anterior portion after an alar cinch and then closed with 3-0 chromic gut in a running interrupted fashion. This completed our procedure. She was allowed to emerge from her general anesthetic until she was breathing spontaneously, then she was extubated in the operating room and then transported to the recovery room and assessed to have stable vital signs, breathing spontaneously with pulse ox 99%. Job ID: [id number] DocumentID: [id number] Dictated Date: 06/10/2018 12:56:23 [employer] Date: 06/10/2018 20:58:47 Dictated By: ENDER MIRAMONTES DDS
== END 2018-05-26 17:25 | disposition home or self-care (01) ==
LOC: SDC 08:33 → EEVIPCON 08:33 → 4TH 14:35 → SDC 05-26 17:25
PROVIDERS: ATTEND Specialist
DX: M26.01 Maxillary hyperplasia (principal); Z11.2 Encounter for screening for other bacterial diseases
CPT/HCPCS: 84703; 87081